=== PATIENT | female | born 1980 | race Caucasian/White ===

== ENCOUNTER 2020-11-17 22:47 | Emergency (ER) | payer OTHER ==
--- NOTE | 2020-11-17 23:33 | EDM.PDOC ---
ED HPI GENERAL MEDICAL PROBLEM - General Chief Complaint: Bite:Animal, Insect Stated Complaint: BEE STING VIA [facility] Time Seen by Provider: 11/17/20 23:20 Source of Information: Reports: Patient History Limitations: Reports: No Limitations - History of Present Illness INITIAL COMMENTS - FREE TEXT/NARRATIVE: 39 yo female presents to ER via EMS with a bee sting to the right hand. This afternoon she was stung by an insect in the right palm. She did take 2 children's claritin at the time of the sting. She then took 50 mg Benadryl. She did have scattered hives on her chest but these resolved after the Benadryl. She denies swelling in mouth or throat. denies difficulty breathing. Right Arm Pain Score (Numeric/FACES): 5 - Related Data Allergies Allergy/AdvReac Type Severity Reaction Status Date / Time Penicillins Allergy Rash Verified 11/17/20 23:25 Home Meds: Home Meds NK [No Known Home Meds] 11/17/20 [History] Past Medical History - Infectious Disease History Infectious Disease History: Reports: Chicken Pox - Past Surgical History HEENT Surgical History: Reports: Myringotomy w Tube(s) Social & Family History - Tobacco Use Tobacco Use Status *Q: Never Tobacco User - Caffeine Use Caffeine Use: Reports: Coffee - Alcohol Use Date of Last Drink: 11/17/20 Time of Last Drink: 22:00 - Recreational Drug Use Recreational Drug Use: No ED ROS GENERAL - Review of Systems Review Of Systems: See Below Constitutional: Denies: Fever, Chills Respiratory: Denies: Shortness of Breath, Wheezing Cardiovascular: Denies: Chest Pain ED EXAM, ANIMAL BITE - Physical Exam Exam: See Below Exam Limited By: No Limitations General Appearance: Alert, WD/WN, No Apparent Distress Respiratory/Chest: No Respiratory Distress, Lungs Clear Cardiovascular: Regular Rate, Rhythm Skin Exam: Other (right hand is swollen traveling along lymph line anterior lower are with two eythemic blochy areas anterior upper arm. ) Course - Vital Signs Last Recorded V/S: Last Vital Signs Temp 36.7 C 11/17/20 23:29 Pulse 72 11/17/20 23:29 Resp 16 11/17/20 23:29 BP 133/85 11/17/20 23:29 Pulse Ox 96 11/17/20 23:29 Departure - Departure Time of Disposition: 23:30 Disposition: Home, Self-Care 01 Condition: Good Clinical Impression: Sting, insect Qualifiers: Encounter type: initial encounter Injury intent: accidental or unintentional Qualified Code(s): T63.481A - Toxic effect of venom of other arthropod, accidental (unintentional), initial encounter - Discharge Information *PRESCRIPTION DRUG MONITORING PROGRAM REVIEWED*: Not Applicable *COPY OF PRESCRIPTION DRUG MONITORING REPORT IN PATIENT RANJANA: Not Applicable Instructions: Bee, Wasp, or Hornet Sting, Adult Referrals: PCP,None [Primary Care Provider] - Forms: ED Department Discharge Additional Instructions: prednisone 2 tablets every morning for 3 days Benadryl 50 mg every 8 hours as needed ice as much as possible for pain and swelling increase fluid with goal of 1.5-2 liters per day Sepsis Event Note (ED) - Focused Exam Vital Signs: Vital Signs Temp Pulse Resp BP Pulse Ox 11/17/20 23:29 36.7 C 72 16 133/85 96 11/17/20 23:23 36.7 C 16 133/85 96 11/17/20 23:15 36.7 C 72 16 133/85 96
== END 2020-11-17 23:39 | disposition home or self-care (01) ==
LOC: JP.ED 22:47
DX: T63.441A Toxic effect of venom of bees, accidental (unintentional), initial encounter (principal); Z88.0 Allergy status to penicillin
CPT/HCPCS: 99282